=== PATIENT | female | born 1955 | race Caucasian/White ===

== ENCOUNTER 2016-12-04 05:02 | Inpatient (IN) ==
[2016-11-28 13:00] LABS: Appearance,Urine CLEAR; Bilirubin,Urine NEG (NEG); Color,Urine YELLOW; Glucose,Urine (UA) NEGATIVE (NEG); Leukocyte Esterase,Urine NEG /uL (NEG); Nitrate,Urine NEG (NEG); Protein,Urine NEG (NEG); Specific Gravity,Urine 1.017 (1.000-1.035); Urine Blood NEG mg/dL (<0.03); Urobilinogen,Urine NEG (NEG)
[2016-11-28 13:35] LABS: Basophils # (Auto) 0 K/mcL (0.0-0.3); Basophils % (Auto) 0.6 % (0.0-2.0); Eosinophils # (Auto) 0.1 K/mcL (0.0-0.7); Granulocytes % (Auto) 43.9 % (38.0-78.0); Lymphocytes # (Auto) 1.5 K/mcL (1.5-4.8); Lymphocytes % (Auto) 44.4 % (15.5-49.0); Mean Cell Volume 92.9 fL (80.0-100.0); Mean Corpuscular HGB Conc 33.3 g/dL (31.0-36.0); Mean Corpuscular Hemoglobin 30.9 pg (26.0-34.0); Monocytes # (Auto) 0.3 K/mcL (0.1-0.9); Monocytes % (Auto) 8.1 % (1.0-12.0); Platelet Count 246 K/mcL (140-440); RBC 4.26 M/mcL (4.00-5.20)
[2016-11-28 13:53] LABS: ALT/SGPT 32 U/l (0-40); Albumin/Globulin Ratio 1.4 (1.0-2.3); Alkaline Phosphatase 50 U/L (39-117); Blood Urea Nitrogen 17 mg/dl (6-20)
[2016-12-04] MEDS: ceFAZolin 1 GM VIAL IV SCH ×4 (07:17→23:18)
[2016-12-04] MEDS ORDERED: SCOPOLAMINE 1 PATCH PATCH TOPICAL ONE (07:22)
[2016-12-04] MEDS ORDERED: KETAMINE 100 MG/ML ML IV ONE (07:45)
[2016-12-04] MEDS ORDERED: ONDANSETRON 4 MG/2 ML VIAL IV ONE (07:45)
[2016-12-04] MEDS ORDERED: MIDAZOLAM 5 MG/5 ML VIAL IV ONE (07:45)
[2016-12-04] MEDS ORDERED: DEXAMETHASONE 10 MG/ML VIAL IV ONE (07:45)
[2016-12-04] MEDS ORDERED: PROPOFOL 200 MG/20 ML VIAL IV ONE (07:45)
[2016-12-04] MEDS ORDERED: SUCCINYLCHOLINE 20 MG/ML ML IV ONE (07:45)
[2016-12-04] MEDS ORDERED: GLYCOPYRROLATE 0.2 MG/ML VIAL IV ONE (07:45)
[2016-12-04] MEDS ORDERED: fentaNYL 250 MCG/5 ML VIAL IV ONE (07:45)
[2016-12-04] MEDS ORDERED: PHENYLEPHRINE 10 MG/ML VIAL IV ONE (07:45)
[2016-12-04] MEDS ORDERED: LIDOCAINE HCL/PF 100 MG/5 ML SYRINGE IV ONE (07:45)
[2016-12-04] MEDS ORDERED: THROMBIN (BOVINE) 5,000 UNIT VIAL TOPICAL ONE (08:04)
[2016-12-04] MEDS ORDERED: BUPIVACAINE 0.25% 50 ML VIAL IJ ONE (08:04)
[2016-12-04] MEDS ORDERED: CALCIUM GLUCONATE 4.65 MEQ/10 ML VIAL IV ONE (08:05)
[2016-12-04] MEDS ORDERED: HEPARIN 20,000 UNIT/ML VIAL IR ONE (08:43)
[2016-12-04] MEDS ORDERED: IPRATROPIUM/ALBUTEROL 3 ML AMPUL.NEB NEB PRN (09:38)
[2016-12-04] MEDS ORDERED: MEPERIDINE 25 MG/ML SYRINGE IV PRN (09:38)
[2016-12-04] MEDS ORDERED: BENZOCAINE/MENTHOL 1 LOZENGE PO PRN ×2 (09:38→10:33)
[2016-12-04] MEDS ORDERED: KETOROLAC 30 MG/ML VIAL IV ONE (09:38)
[2016-12-04] MEDS ORDERED: LABETALOL 5 MG/ML ML IV PRN (09:38)
[2016-12-04] MEDS ORDERED: ONDANSETRON 4 MG/2 ML VIAL IV PRN (09:38)
[2016-12-04] MEDS ORDERED: ACETAMINOPHEN 1,000 MG/100 ML BOTTLE IV ONE (09:38)
[2016-12-04] MEDS ORDERED: METHOCARBAMOL 1,000 MG/10 ML VIAL IV PRN (09:38)
[2016-12-04] MEDS ORDERED: PROMETHAZINE 25 MG/ML VIAL IV PRN (09:38)
[2016-12-04] MEDS ORDERED: LACTATED RINGERS 1,000 ML IV SCH (09:45)
[2016-12-04] MEDS ORDERED: ceFAZolin 1 GM VIAL IV ONE (09:51)
[2016-12-04] MEDS ORDERED: ceFAZolin 1 GM VIAL ONE (09:55)
[2016-12-04] MEDS ORDERED: ONDANSETRON ODT 4 MG TABLET SL PRN (10:33)
--- NOTE | 2016-12-04 10:33 | Brief Operative Note ---
Date of procedure: 12/04/16 Pre-op diagnosis: stenosis, instability L4/5 Post-op diagnosis: same Procedure: decompression and fusion Grafts/Implants: Yes (nuvasive) Anesthesia: GETA Findings: stenosis, and instability Complications: none Surgeon: Larry Casiano Creative Technologist: Luc Jeter Estimated blood loss (cc): 100 Specimens Removed/Pathology: none sent Condition: stable Disposition: PACU
[2016-12-04] MEDS ORDERED: METHOCARBAMOL 750 MG TABLET PO PRN (10:39)
[2016-12-04] MEDS ORDERED: HYDROmorphone PCA 30 MG/30 ML PCA.VIAL IV PRN (10:39)
[2016-12-04] MEDS: fentaNYL 100 MCG/2 ML VIAL IV PRN ×8 (10:52→11:43)
[2016-12-04] MEDS: HYDROmorphone 2 MG/ML SYRINGE IV PRN ×3 (11:44→12:00)
--- NOTE | 2016-12-04 12:04 | Operative Note ---
DATE OF OPERATION: 12/04/2016 PREOPERATIVE DIAGNOSIS: Lumbar stenosis with instability. POSTOPERATIVE DIAGNOSIS: Lumbar stenosis with instability. OPERATION PROPOSED: 1. Lumbar decompression with decompression of the central canal, lateral recess, and neural foramen L4-L5. 2. Posterior nonsegmental instrumentation using a NuVasive medial cortical screw construct. 3. Posterior/posterolateral fusion at L4-L5. 4. Application of prosthetic device interbody space and interbody fusion at L4-L5. 5. Aspiration of iliac crest for osteoprogenitor cells bilateral iliac crests L4-L5. OPERATION PERFORMED: 1. Lumbar decompression with decompression of the central canal, lateral recess, and neural foramen L4-L5. 2. Posterior nonsegmental instrumentation using a NuVasive medial cortical screw construct. 3. Posterior/posterolateral fusion at L4-L5. 4. Application of prosthetic device interbody space and interbody fusion at L4-L5. 5. Aspiration of iliac crest for osteoprogenitor cells bilateral iliac crests L4-L5. OPERATING SURGEON: Larry Casiano MD ENVELOPE SEALER OPERATOR: Luc Jeter PA-C. INDICATIONS: This is a lady who has had quite significant radiculopathy. She has a spondylolisthesis and significant foraminal narrowing as well as lateral recess stenosis. We have elected to proceed with a decompression and instrumental fusion. OPERATION IN DETAIL: Informed consent was obtained. She was taken to the operating room where she was provided with appropriate anesthetic and prophylactic antibiotics. She was carefully positioned. Her back was prepped sterilely. A midline incision was made. I dissected down to expose the spinous process and lamina at L4-L5. A self-retaining retractor was applied. I then, using fluoroscopic guidance, placed a mary kay with a bur at the starting position of the pedicle at the inferior medial aspect of the pedicle based on the AP projection. I then entered the lateral projection advanced a drill bit cephalad and lateral. I was using EMG monitoring as well. Each drill hole was then tapped and probed. I placed an appropriate length medial cortical screw at L4-L5, both on the right and on the left. I then aspirated the iliac crest for osteoprogenitor cells. This was done by advancing a Jamshidi type needle into the iliac crest. After every 10 to 15 mL of aspirate I repositioned the needle. This was done bilaterally. The aspirate was passed to the back table where it was spun down for osteoprogenitor cells. I then performed the performed the decompression. This was done by removing the inferior one half of the spinous process and lamina of L4 and the superior portion of L5. I worked my way laterally decompressing the lateral recess and then out into the opening of the neural foramen. She had more symptoms on the right and I did additional decompression work on the right. We then performed the application of prosthetic device interbody space and interbody fusion. This was done by mobilizing the nerve root towards the midline and then incised the annulus. I brought in a variety of phillip. By turning these phillip, I was able to obtain distraction across the disc space as well as to debride disc material. I then held the distraction with a working gayla. I extensively curetted the disc space debriding down to subchondral bone. I removed all disc material. The disc space was then filled with morcellized bone graft that was packed into the disc space and against the debrided annulus. I then filled a cage also from [employer] with morcellized bone graft. This was impacted into the site prepared for it. The position of the cage was verified with fluoroscopy. I then performed the posterior/posterolateral fusion. This was done by extensively decorticating the posterolateral aspect of the spine. I packed morcellized graft into and against the decorticated posterolateral aspect of the spine to allow for fusion. I had irrigated thoroughly with pulsatile lavage and IrriSept prior to placing bone graft. I completed the procedure by compressing across the interbody graft. I tightened and torqued the gayla into the top-loading pedicle screws. The wounds were closed over a deep drain with a 0 Vicryl interrupted fashion, 2-0 Vicryl inverted deep dermal, and running subcuticular. The procedure was tolerated well. No complications. Estimated blood loss 100 mL GDD:shabana Job ID: [id number] Doc ID: [id number] Larry Casiano MD
--- NOTE | 2016-12-04 12:26 | XRay Report ---
HISTORY: Reason for Exam:decompression FINDINGS: Bilateral pedicle screws have been inserted out L4 and L5. There connected posteriorly with rods. There is also a strut in the disc space. There is 2 mm grade 1 spondylolisthesis at L4-5. The disc space is normal in height. No fracture is present. IMPRESSION: Normal alignment following interbody and posterior fusion at L4-5 Interpreted and Authenticated by: Alejandro To 12/04/16
[2016-12-04] MEDS: HYDROmorphone 2 MG TABLET PO PRN ×3 (12:29→20:31)
[2016-12-04] MEDS: 0.9 % SODIUM CHLORIDE 1,000 ML IV SCH ×3 (16:33→22:59)
[2016-12-04] MEDS: diphenhydrAMINE 25 MG CAPSULE PO SCH (20:30)
[2016-12-04] MEDS: DOCUSATE SODIUM 100 MG CAPSULE PO SCH (20:31)
[2016-12-04] MEDS: METHOCARBAMOL 750 MG TABLET PO PRN (20:31)
[2016-12-04] MEDS: FERROUS SULFATE 325 MG TABLET PO SCH (22:59)
[2016-12-04] MEDS: VITAMIN D3 1,000 UNIT TABLET PO SCH (22:59)
[2016-12-04] MEDS: traMADol 50 MG TABLET PO PRN (23:22)
[2016-12-05] MEDS: HYDROmorphone 2 MG TABLET PO PRN ×6 (00:36→22:19)
[2016-12-05] MEDS: METHOCARBAMOL 750 MG TABLET PO PRN ×4 (04:37→22:20)
[2016-12-05] MEDS: 0.9 % SODIUM CHLORIDE 1,000 ML IV SCH ×2 (05:36→17:19)
[2016-12-05] MEDS: traMADol 50 MG TABLET PO PRN ×2 (06:04→16:19)
[2016-12-05] MEDS: LEVOTHYROXINE 125 MCG TABLET PO SCH (07:32)
--- NOTE | 2016-12-05 07:43 | Orthopedic Progress Note ---
Subjective Patient information: Note initiated : 12/05/16 at 7:41 am Service Date, if different from initiated Date: [] Patient: Aurelio Hickey 61 y/o F admitted on 12/04/16 for L4-5 Lumbar Decompression With Fusion. Chief Complaint: []continues to have some R LE pain anterior lateral thigh Objective Vital signs: Vital Signs Temp Pulse Pulse Resp BP BP Pulse Ox 12/05/16 07:34 98.2 F 61 12 117/63 93 12/05/16 03:12 97.3 F L 63 12 120/73 95 12/05/16 00:00 98.1 F 65 12 115/62 95 12/04/16 20:00 98.0 F 68 10 L 120/76 91 12/04/16 16:00 98.0 F 20 128/79 93 12/04/16 13:44 59 L 123/75 94 12/04/16 13:17 99 12/04/16 13:14 55 L 113/69 99 12/04/16 13:01 69 170/80 99 12/04/16 13:00 60 160/78 90 12/04/16 12:59 60 151/75 97 12/04/16 12:47 62 118/72 97 12/04/16 12:44 62 112/75 100 12/04/16 12:29 67 105/68 99 12/04/16 12:14 67 120/84 95 12/04/16 11:57 92 H 135/81 96 12/04/16 11:45 98.2 F 91 H 14 91 12/04/16 11:42 91 H 154/87 96 12/04/16 11:15 80 20 105/72 99 12/04/16 11:00 79 12 119/79 99 12/04/16 10:45 97.0 F L 75 14 115/74 99 Intake and Output 12/04/16 12/05/16 12/05/16 21:59 05:59 13:59 Intake Total 18390 1350 / 1350 Output Total 2099 / 2099 705 / 705 315 / 315 Balance -260 / -260 645 / 645 -315 / -315 Intake: IV 1000 / 1000 Sodium Chloride 0.9% 1, 1000 / 1000 000 ml @ 100 mls/hr IV . Q10H [facility] Rx#:[id number] Oral 1840 / 1840 350 / 350 Output: Drainage 55 / 55 15 / 15 Lower Back JAEL Drain 55 / 55 15 / 15 Urine Catheter Amount 850 / 850 Void Amount 1250 / 1250 650 / 650 300 / 300 Straight 850 / 850 Other: Weight 175 lb 8 oz Intake & Output: Intake & Output 12/04/16 12/05/16 12/05/16 21:59 05:59 13:59 Intake Total 1840 / 1840 1350 / 1350 Output Total 2099 / 2100 705 / 705 315 / 315 Balance -260 / -260 645 / 645 -315 / -315 Weight 175 lb 8 oz Intake: IV 1000 / 1000 Sodium Chloride 0.9% 1, 1000 / 1000 000 ml @ 100 mls/hr IV . Q10H [facility] Rx#:[id number] Oral 1840 / 1840 350 / 350 Output: Drainage 55 / 55 15 / 15 Lower Back JAEL Drain 55 / 55 15 / 15 Urine Catheter Amount 850 / 850 Void Amount 1250 / 1250 650 / 650 300 / 300 Straight 850 / 850 Dressing: Yes intact Weight bearing status: full Neurological exam IM: Yes oriented X3, Yes neurovascular intact - Labs CBC & BMP: 11/28/16 11:27 11/28/16 11:26 Labs: Orthopedic Labs 11/28/16 11:26 PT 12.8 INR 0.9 12/05/16 11/28/16 05:25 11:27 Hgb Pending 13.2 Hct Pending 39.6 Assessment and Plan (1) Spinal stenosis at L4-L5 level status post decompression and fusion. No perioperative issues. Continues with some RLE pain Mobilize with PT Status: Acute
--- NOTE | 2016-12-05 07:46 | Discharge Summary ---
Providers - Providers Patient information: Note initiated : 12/05/16 at 7:44 am Service Date, if different from initiated Date: [] Patient: Aurelio Hickey 61 y/o F admitted on 12/04/16 for L4-5 Lumbar Decompression With Fusion. Chief Complaint: [] Date of admission: 12/04/16 Discharge date: 12/06/16 Attending physician: Larry Casiano Hospitalization Hospital course: No complications Discharge diagnosis: Lumbar stenosis Exam - Exam Incision healing: Yes Weight bearing status: full Ortho Discharge - Spine - Patient Instructions Discharge Diet: Regular Diet Activity: activity as tolerated Spine Protocol: Limit bending and stooping. No heavy lifting. Wear brace/collar at all times except when showering and sleeping. Dressing Care: May shower in 2 days Additional Dressing Instructions: May Shower 48 hours post-operative and replace with dry dressing after shower. - Problem Maintenance (1) Spinal stenosis at L4-L5 level Status: Acute - Follow Up Plan Follow Up Appointments: Larry Casiano MD [Physician] - 12/21/16 9:20 am Disposition: Home, Self-Care Prognosis: Good Rehab Potential: Good I certify that the patient requires SNF services: No Pending Studies Resuscitation Status Full Code Diet Regular Diet Start Mon Apr 3 Lunch Diphenhydramine HCl (Benadryl) 50 mg PO HS JOY Last Admin: 12/04/16 20:30 Dose: 50 mg Docusate Sodium (Colace) 100 mg PO BID JOY Last Admin: 12/04/16 20:31 Dose: 100 mg Ferrous Sulfate (Ferrous Sulfate) 650 mg PO HS [facility] Last Admin: 12/04/16 22:59 Dose: Not Given Hydromorphone HCl (Dilaudid) 0 mg PO Q4HP PRN PRN Reason: Pain Last Admin: 12/05/16 04:36 Dose: 4 mg Admin: 12/05/16 00:36 Dose: 4 mg Admin: 12/04/16 20:31 Dose: 4 mg Admin: 12/04/16 16:29 Dose: 4 mg Admin: 12/04/16 12:29 Dose: 4 mg Sodium Chloride (Sodium Chloride 0.9%) 1,000 mls @ 100 mls/hr IV .Q10H JOY Last Admin: 12/05/16 05:36 Dose: Infusion: 12/05/16 02:35 Dose: 0 mls/hr Admin: 12/04/16 22:59 Dose: Not Given Admin: 12/04/16 16:34 Dose: Not Given Admin: 12/04/16 16:33 Dose: 100 mls/hr Levothyroxine Sodium (Synthroid) 125 mcg PO QAMAC JOY Last Admin: 12/05/16 07:32 Dose: 125 mcg Methocarbamol (Robaxin) 750 mg PO Q6HP PRN PRN Reason: Muscle Spasm Last Admin: 12/05/16 04:37 Dose: 750 mg Admin: 12/04/16 20:31 Dose: 750 mg Throat Lozenges (Cepacol) 1 lozenge PO PRN PRN PRN Reason: Sore Throat Last Admin: 12/04/16 18:08 Dose: 1 lozenge Tramadol HCl (Ultram) 50 mg PO Q6HP PRN PRN Reason: Pain Last Admin: 12/05/16 06:04 Dose: 50 mg Admin: 12/04/16 23:22 Dose: 50 mg Vitamin D (Vitamin D3) 2,000 unit PO HS JOY Last Admin: 12/04/16 22:59 Dose: Not Given Shift Summary 12/05/16 04:57 Shift Summary by Micki Nickerson Pt A&O, up with one to BR. Straight cathed beginning of shift, now voiding adequate amounts, does have hx of bladder problems and retention. Pain to lower back and right leg, 4mg Hydromorphone tabs, Robaxin, and Ultram given for pain. SL IV to left hand. SCDs on, Ice pack used to right leg. JAEL drain, charged 20m q2 hours. Emptied at 0200 for 55ml, had emptied itself onto bedding before this , not able to measure. Initialized on 12/05/16 04:57 - END OF NOTE
[2016-12-05] MEDS: DOCUSATE SODIUM 100 MG CAPSULE PO SCH ×2 (08:45→22:20)
[2016-12-05] MEDS: VITAMIN D3 1,000 UNIT TABLET PO SCH (22:19)
[2016-12-05] MEDS: FERROUS SULFATE 325 MG TABLET PO SCH (22:20)
[2016-12-05] MEDS: diphenhydrAMINE 25 MG CAPSULE PO SCH (22:21)
[2016-12-05 22:48] LABS: Blood Urea Nitrogen 12 mg/dl (6-20)
[2016-12-06] MEDS: HYDROmorphone 2 MG TABLET PO PRN ×2 (03:28→08:21)
[2016-12-06] MEDS: METHOCARBAMOL 750 MG TABLET PO PRN (04:57)
[2016-12-06] MEDS: LEVOTHYROXINE 125 MCG TABLET PO SCH (07:49)
[2016-12-06] MEDS: DOCUSATE SODIUM 100 MG CAPSULE PO SCH (08:22)
== END 2016-12-06 11:20 | disposition home or self-care (01) | DRG 460 ==
LOC: MEDSUR 05:02
PROVIDERS: ADMIT Orthopaedic Surgery Orthopaedic Surgery of the Spine; ATTEND Orthopaedic Surgery Orthopaedic Surgery of the Spine
PROC: LUMDECF (ICD-10-PCS; 2016-12-04 07:38)